=== PATIENT | male | born 1980 | race Caucasian/White ===

== ENCOUNTER 2016-06-27 12:54 | Emergency (ER) | payer OTHER ==
[~2016-06-27] VITALS: Ht 185.4 cm; Wt 88.5 kg
[2016-06-27 12:56] VITALS: BP 146/92; PULSE 72; RESP 15; TEMP 98.2; O2SAT 98
[2016-06-27] MEDS ORDERED: TRAZ300T2 PO (13:27)
--- NOTE | 2016-06-27 13:39 | PD ---
HPI Chief Complaint: Laceration/Skin Injury Time Seen by Provider: 13:38 Travel History International Travel<30 days: No Contact w/Intl Traveler<30days: No Traveled to known affect area: No History of Present Illness HPI 36-year-old male presents emergency Department with complaint of a laceration to his left thumb that occurred on Monday night from a serrated knife. He was seen earlier today at [facility] and was given his tetanus vaccination. He was told to come here for laceration repair. Reports swelling of the finger. Denies paresthesias, loss of sensation. Reports decreased range of motion secondary to swelling of the finger. Denies fever, chills, nausea, vomiting. No other medical complaints. No other modifying factors or associated signs and symptoms. PFSH Past Medical History Medical History: Denies Significant Hx Tetanus Vaccination: < 5 Years Past Surgical History Other Surgery: Yes (acl x 2) Social History Alcohol Use: Yes Tobacco Use: Yes Substance Use: No Allergies-Medications (Allergen,Severity, Reaction): Coded Allergies: No Known Allergies (Unverified , 06/27/16) Reported Meds & Prescriptions Reported Meds & Active Scripts Active Ibuprofen 800 Mg Tab 800 Mg PO Q6HR PRN Keflex (Cephalexin) 500 Mg Cap 500 Mg PO Q8H 7 Days Reported Trazodone (Trazodone HCl) 300 Mg Tab 300 Mg PO HS Review of Systems Except as stated in HPI: all other systems reviewed are Neg Physical Exam Narrative GENERAL: Well-nourished, well-developed male patient, in no acute distress SKIN: Warm and dry. Approximately one and half centimeter laceration to the medial aspect of the left thumb at the DIP joint; finger is with minimal edema and without erythema. With decreased range of motion at the DIP joint. Sensory intact. Good opposition. HEAD: Atraumatic. Normocephalic. EYES: Pupils equal and round. No scleral icterus. No injection or drainage. ENT: Mucosa pink and moist. Airway patent. NECK: Trachea midline. CARDIOVASCULAR: Regular rate. RESPIRATORY: No accessory muscle use. GASTROINTESTINAL: Flat. MUSCULOSKELETAL: No obvious deformities. No clubbing. No cyanosis. No edema. NEUROLOGICAL: Awake and alert. Oriented 3. No obvious cranial nerve deficits. Motor grossly within normal limits. Normal speech. PSYCHIATRIC: Appropriate mood and affect; insight and judgment normal. Data Data Last Documented VS Vital Signs Date Time Temp Pulse Resp B/P Pulse Ox O2 Delivery O2 Flow Rate FiO2 06/27/16 12:59 06/27/16 12:56 98.2 72 15 98 Orders Bupivacaine Pf 0.5% Inj (Marcaine Pf 0.5 (06/27/16 13:45) Lidocaine 1% Inj (50 Ml) (Xylocaine 1% I (06/27/16 13:45) MDM Medical Decision Making Medical Screen Exam Complete: Yes Emergency Medical Condition: Yes Medical Record Reviewed: Yes Differential Diagnosis Laceration, contusion, abrasion Narrative Course 36-year-old male with laceration to his left thumb. See my procedure note for laceration repair. Tetanus was updated prior to arrival at the [facility]. Keflex, ibuprofen prescribed for home. Patient verbalizes understanding and agreement with treatment plan. Patient is medically cleared and stable for discharge. Discussed reasons to return to the emergency department. Instructed patient to follow up with primary care provider. Patient agrees with treatment plan. The patients vital signs are stable and the patient is stable for outpatient follow-up and treatment. Patient discharged home, stable and in no acute distress. Procedures Procedure Narrative LACERATION LOCATION: Left thumb LENGTH: 1.5 cm NUMBER OF STITCHES/FIDE: 3 simple interpreted sutures REPAIR: The area of the laceration was prepped with Betadine and sterilely draped. The thumb was digitally blocked using 0.5% bupivacaine and 1% lidocaine. The wound was copiously irrigated and explored without evidence of foreign body , tendon injury or neurovascular injury. The wound was closed using 4-0 Ethilon. This was a single layer repair. A sterile dressing was applied. The patient was advised to keep the dressing clean and dry. Patient tolerated the procedure well. Diagnosis Primary Impression: Laceration of thumb, left Qualified Code: S61.012A - Laceration of thumb, left, initial encounter Referrals: Primary Care Physician Patient Instructions: Care For Your Stitches (ED), Finger Laceration (ED), General Instructions Departure Forms: Tests/Procedures, Work Release Enter return to work date: Jun 28, 2016 Additional Instructions: Keep area clean and dry Limit left thumb activity to decrease risk of sutures coming undone; finger splint for support Ibuprofen every 6 hours as directed and as needed for pain Ice pack to area as needed to decrease pain Return to the emergency department or follow-up with primary care provider in 7- 10 days for suture removal Follow up with primary care provider Return to the emergency department immediately with worsening of symptoms, particularly if reddened streaks up or down the affected extremity from the suture site, fever, numbness/tingling in the affected extremity, loss of sensation in the affected extremity, severe swelling of the affected Med/Other Pt SpecificInfo: Prescription(s) given Scripts Ibuprofen 800 Mg [id number] Mg PO Q6HR PRN (PAIN) #30 TAB Ref 0 Prov:Magda Gilbert 06/27/16 Cephalexin (Keflex)500 Mg [id number] Mg PO Q8H 7 Days Ref 0 Prov:Magda Gilbert 06/27/16 Disposition: 01 DISCHARGE HOME Condition: Stable Magda Gilbert Jun 27, 2016 13:38
[2016-06-27] MEDS ORDERED: IBUP800T23 PO (13:42)
[2016-06-27] MEDS ORDERED: CEPH-460 PO (13:42)
[2016-06-27] MEDS ORDERED: LIDOCAINE HCL 1% 50 ML VIAL INFIL ONE (13:45)
[2016-06-27] MEDS ORDERED: BUPIVACAINE HCL PF 0.5% 10 ML VIAL INFIL ONE (13:45)
== END 2016-06-27 14:51 | disposition home or self-care (01) ==
LOC: NEPK 12:54
DX: S61.012A Laceration without foreign body of left thumb without damage to nail, initial encounter (principal); Z72.0 Tobacco use
CPT/HCPCS: 12001

== ENCOUNTER 2017-04-11 12:21 | Observation (INO) | payer OTHER ==
[2017-04-11] MEDS ORDERED: NALOXONE HCL 0.4 MG/ML AMP IV PUSH ×2 (12:30→17:15)
[2017-04-11] MEDS ORDERED: SODIUM CHLORIDE 0.9% FLUSH 10 ML FLUSH IVF (12:30)
[2017-04-11] MEDS: SODIUM CHLOR 0.9% 1000 ML INJ 1,000 ML IV (12:39)
[2017-04-11] MEDS: NALOXONE HCL 2 MG/2 ML VIAL IV PUSH (12:40)
[2017-04-11 12:52] LABS: BASOPHIL % 0.3 % (0.0-2.0); EOSINOPHIL # 0.1 TH/MM3 (0-0.4); EOSINOPHIL % 1.6 % (0.0-4.0); HEMATOCRIT 43.7 % (39.0-51.0); HEMO FLAGS DIFF FINAL; HEMOGLOBIN 14.7 GM/DL (13.0-17.0); LYMPH % 31.7 % (9.0-44.0); LYMPHOCYTE # 2.1 TH/MM3 (1.0-4.8); MEAN CELL VOLUME 94.7 FL (80.0-100.0); MEAN CORPUSCULAR HEMOGLOBIN 31.8 PG (27.0-34.0); MEAN CORPUSCULAR HGB CONC 33.6 % (32.0-36.0); MEAN PLATELET VOLUME 9.2 FL (7.0-11.0); MONO % 6.5 % (0.0-8.0); MONOCYTE # 0.4 TH/MM3 (0-0.9); NEUT % 59.9 % (16.0-70.0); PLATELET COUNT 180 TH/MM3 (150-450); RED BLOOD COUNT 4.62 MIL/MM3 (4.50-5.90); WHITE BLOOD COUNT 6.6 TH/MM3 (4.0-11.0)
[2017-04-11 13:08] LABS: SALICYLATES LESS THAN 1.7 MG/DL (2.8-20.0)
[2017-04-11 13:09] LABS: ALBUMIN 4.1 GM/DL (3.4-5.0); ANION GAP 8 MEQ/L (5-15); AST (GOT) 42 U/L (15-37); BICARBONATE 26.7 MEQ/L (21.0-32.0); BLOOD UREA NITROGEN 9 MG/DL (7-18); CALCIUM 8.4 MG/DL (8.5-10.1); CHLORIDE 105 MEQ/L (98-107); CREATININE 0.83 MG/DL (0.60-1.30); GLOMERULAR FILTRATION RATE 105 ML/MIN (>89); GLUCOSE,RANDOM 91 MG/DL (74-106); POTASSIUM 3.8 MEQ/L (3.5-5.1); SODIUM (NA) 140 MEQ/L (136-145)
[2017-04-11 13:12] LABS: ALCOHOL 140 MG/DL (0-5)
[2017-04-11 13:14] LABS: ALKALINE PHOSPHATASE 62 U/L (45-117); ALT (GPT) 42 U/L (12-78); TOTAL BILIRUBIN ADULT 0.2 MG/DL (0.2-1.0)
[2017-04-11 13:15] LABS: ACETAMINOPHEN LESS THAN 2.0 MCG/ML (10.0-30.0)
[2017-04-11 13:40] LABS: BILIRUBIN, URINE NEG (NEG); BLOOD, URINE NEG (NEG); COMMENT (UR) CULT NOT INDICATED; CULTURE IF INDICATED CULT NOT INDICATED; GLUCOSE,URINE NEG (NEG); KETONE, URINE NEG (NEG); MUCUS URINE FEW /lpf (OCC); NITRITE,URINE NEG (NEG); PH, URINE 7.5 (5.0-8.5); URINE COLOR YELLOW (YELLW/STRAW); URINE LEUKOCYTE ESTERASE NEG (NEG)
[2017-04-11 13:51] LABS: AMPHETAMINE, URINE NEG (NEG); BARBITURATES, URINE NEG (NEG); BENZODIAZEPINE,URINE POS (NEG); CANNABINOIDS, URINE NEG (NEG); COCAINE, URINE NEG (NEG)
[2017-04-11] MEDS ORDERED: SENNOSIDES 8.6 MG TAB PO (17:15)
[2017-04-11] MEDS ORDERED: ACETAMINOPHEN 325 MG TAB PO (17:15)
[2017-04-11] MEDS ORDERED: ONDANSETRON HCL 4 MG/2 ML VIAL IVP (17:15)
[2017-04-11] MEDS ORDERED: MAGNESIUM HYDROXIDE SUSP 30 ML CUP PO (17:15)
[2017-04-11] MEDS ORDERED: BISACODYL 10 MG SUPP RECTAL (17:15)
[2017-04-11] MEDS ORDERED: LORazepam 2 MG TAB PO (17:15)
[2017-04-11] MEDS ORDERED: FLUMAZENIL 0.5 MG/5 ML VIAL IV PUSH (17:15)
[2017-04-11] MEDS ORDERED: SODIUM CHLORIDE 0.9% FLUSH 10 ML FLUSH IV FLUSH (17:15)
[2017-04-11] MEDS ORDERED: LORazepam 1 MG TAB PO (17:15)
[2017-04-11] MEDS ORDERED: LACTULOSE SYRUP 20 GM/30 ML CUP PO (17:15)
[2017-04-11] MEDS ORDERED: LORazepam 2 MG/ML VIAL IV PUSH ×4 (17:15)
[2017-04-11] MEDS: SODIUM CHLORIDE 0.9% FLUSH 10 ML FLUSH IV FLUSH (20:24)
[2017-04-11] MEDS: MULTIVITAMIN INJ 10 ML, FOLIC ACID INJ 1 MG in SODIUM CHLORID 0.9% 500 ML INJ 500 ML IV (20:24)
[2017-04-11] MEDS ORDERED: TEMAZEPAM 15 MG CAP PO (21:00)
[2017-04-12] MEDS: THIAMINE INJ 100 MG in SODIUM CHLORIDE 0.9% INJ 100 ML IV (00:47)
[2017-04-12] MEDS: ENOXAPARIN SODIUM 40 MG/0.4 ML SYRINGE SQ (00:47)
[2017-04-12 06:56] LABS: AUTOMATED NEUTROPHIL # 3.2 TH/MM3 (1.8-7.7); BASOPHIL % 0.5 % (0.0-2.0); EOSINOPHIL # 0.2 TH/MM3 (0-0.4); EOSINOPHIL % 3.2 % (0.0-4.0); HEMATOCRIT 40.7 % (39.0-51.0); HEMO FLAGS DIFF FINAL; HEMOGLOBIN 13.9 GM/DL (13.0-17.0); LYMPH % 38.6 % (9.0-44.0); LYMPHOCYTE # 2.5 TH/MM3 (1.0-4.8); MEAN CELL VOLUME 93.8 FL (80.0-100.0); MEAN CORPUSCULAR HEMOGLOBIN 32.1 PG (27.0-34.0); MEAN CORPUSCULAR HGB CONC 34.3 % (32.0-36.0); MEAN PLATELET VOLUME 9.2 FL (7.0-11.0); MONO % 8.4 % (0.0-8.0); MONOCYTE # 0.5 TH/MM3 (0-0.9); NEUT % 49.3 % (16.0-70.0); PLATELET COUNT 157 TH/MM3 (150-450); RED BLOOD COUNT 4.34 MIL/MM3 (4.50-5.90); RED CELL DISTRIBUTION WIDTH 12.7 % (11.6-17.2); WHITE BLOOD COUNT 6.5 TH/MM3 (4.0-11.0)
[2017-04-12 07:02] LABS: APTT (PATIENT) 28.9 SEC (24.3-30.1); PROTHROMBIN TIME - PATIENT 10.6 SEC (9.8-11.6)
[2017-04-12 07:21] LABS: ALBUMIN 3.7 GM/DL (3.4-5.0); ANION GAP 9 MEQ/L (5-15); AST (GOT) 39 U/L (15-37); BICARBONATE 28.5 MEQ/L (21.0-32.0); BLOOD UREA NITROGEN 12 MG/DL (7-18); CALCIUM 8.5 MG/DL (8.5-10.1); CHLORIDE 104 MEQ/L (98-107); CREATININE 0.82 MG/DL (0.60-1.30); GLOMERULAR FILTRATION RATE 106 ML/MIN (>89); GLUCOSE,RANDOM 73 MG/DL (74-106); POTASSIUM 3.6 MEQ/L (3.5-5.1); SODIUM (NA) 141 MEQ/L (136-145)
[2017-04-12 07:25] LABS: ACETAMINOPHEN LESS THAN 2.0 MCG/ML (10.0-30.0)
[2017-04-12 07:26] LABS: ALKALINE PHOSPHATASE 56 U/L (45-117); ALT (GPT) 37 U/L (12-78); TOTAL BILIRUBIN ADULT 0.7 MG/DL (0.2-1.0); TOTAL PROTEIN 7.1 GM/DL (6.4-8.2)
[2017-04-12] MEDS: DULoxetine HCl DR 60 MG CAP PO (10:19)
[2017-04-12] MEDS: SODIUM CHLORIDE 0.9% FLUSH 10 ML FLUSH IV FLUSH (10:19)
[2017-04-15] MEDS ORDERED: THIAMINE HCL 100 MG TAB PO (09:00)
== END 2017-04-12 18:10 ==
LOC: NEPC 12:21 → NEDA 14:15 → NEPGCP 18:08
DX: F43.21 Adjustment disorder with depressed mood (principal); F43.22 Adjustment disorder with anxiety; T50.901A Poisoning by unspecified drugs, medicaments and biological substances, accidental (unintentional), initial encounter; S62.328A Displaced fracture of shaft of other metacarpal bone, initial encounter for closed fracture; R45.851 Suicidal ideations; R40.0 Somnolence; R09.02 Hypoxemia; R55 Syncope and collapse; R94.31 Abnormal electrocardiogram [ECG] [EKG]; F10.20 Alcohol dependence, uncomplicated; F43.10 Post-traumatic stress disorder, unspecified; H91.90 Unspecified hearing loss, unspecified ear; F17.200 Nicotine dependence, unspecified, uncomplicated; F12.90 Cannabis use, unspecified, uncomplicated; M19.90 Unspecified osteoarthritis, unspecified site; Z87.820 Personal history of traumatic brain injury; Z85.820 Personal history of malignant melanoma of skin; W22.8XXA Striking against or struck by other objects, initial encounter
CPT/HCPCS: 71045; 73130; 80053; 80307; 81001; 82306; 82652; 84443; 85025; 85610; 85730; 92610-GN; 93005; 96361; 96365; 96366; 96372; 96375; 97165-GO; 99285-25

== ENCOUNTER 2017-04-12 14:24 | Inpatient (IN) | payer OTHER ==
[~2017-04-12 14:24] MED LIST: CYCL10TA PO; DULO1CAP3 PO; FLUO1TAB17; NALT50TA3 PO; NORC5TAB PO; TRAZ300T2 PO
[2017-04-12] MEDS ORDERED: ALUMINUM/MAGNESIUM/SIMETH 30 ML CUP PO PRN (20:00)
[2017-04-12] MEDS ORDERED: BENZTROPINE MESYLATE 1 MG TAB PO PRN (20:00)
[2017-04-12] MEDS ORDERED: LORazepam 2 MG/ML VIAL IM PRN ×4 (20:00)
[2017-04-12] MEDS ORDERED: LORazepam 1 MG TAB PO PRN (20:00)
[2017-04-12] MEDS ORDERED: FLUMAZENIL 0.5 MG/5 ML VIAL IV PUSH PRN (20:00)
[2017-04-12] MEDS ORDERED: hydrOXYzine HCL 50 MG TAB PO PRN (20:00)
[2017-04-12] MEDS ORDERED: LORazepam 2 MG TAB PO PRN (20:00)
[2017-04-12] MEDS ORDERED: MAGNESIUM HYDROXIDE SUSP 30 ML CUP PO PRN (20:00)
[2017-04-12] MEDS ORDERED: BENZTROPINE MESYLATE 2 MG/2 ML VIAL IM PRN (20:00)
[2017-04-12] MEDS ORDERED: ACETAMINOPHEN 325 MG TAB PO PRN (20:00)
[2017-04-13 05:30] VITALS: BP 128/68; PULSE 53; RESP 16; TEMP 97.9; O2SAT 96
[2017-04-13 08:36] LABS: ALBUMIN 3.7 GM/DL (3.4-5.0); ALT (GPT) 41 U/L (12-78); AST (GOT) 38 U/L (15-37); BICARBONATE 29.9 MEQ/L (21.0-32.0); BLOOD UREA NITROGEN 11 MG/DL (7-18); CALCIUM 8.6 MG/DL (8.5-10.1); CHLORIDE 103 MEQ/L (98-107); CHOLESTEROL 184 MG/DL (120-200); CREATININE 0.95 MG/DL (0.60-1.30); GLOMERULAR FILTRATION RATE 90 ML/MIN (>89); GLUCOSE,RANDOM 75 MG/DL (74-106); SODIUM (NA) 139 MEQ/L (136-145); TRIGLYCERIDES 131 MG/DL (42-150)
[2017-04-13 08:46] LABS: ALKALINE PHOSPHATASE 66 U/L (45-117); HDL CHOLESTEROL 59.2 MG/DL (40.0-60.0); LDL CHOLESTEROL 99 MG/DL (0-99); TOTAL BILIRUBIN ADULT 0.4 MG/DL (0.2-1.0); TOTAL PROTEIN 7.4 GM/DL (6.4-8.2)
[2017-04-13] MEDS: REMOVE OLD PATCH T-DERMAL SCH (09:00)
[2017-04-13] MEDS: THIAMINE HCL 100 MG TAB PO SCH (10:00)
[2017-04-13] MEDS: FOLIC ACID 1 MG TAB PO SCH (10:00)
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
[2017-04-13] MEDS: DULoxetine HCl DR 60 MG CAP PO SCH (16:31)
[2017-04-13 16:43] LABS: HEMOGLOBIN A1C 5.3 % (4.3-6.0)
[2017-04-13 18:47] VITALS: BP 137/79; PULSE 69; RESP 17; TEMP 97.9; O2SAT 97
[2017-04-13 18:49] VITALS: BP 137/79; PULSE 69; RESP 17; TEMP 97.9; O2SAT 97
[2017-04-13] MEDS ORDERED: traZODone HCL 100 MG TAB PO SCH (21:00)
[2017-04-13] MEDS: MELATONIN 5 MG TAB PO PRN (21:40)
[2017-04-14 06:13] VITALS: BP 130/66; PULSE 52; RESP 16; TEMP 97.2; O2SAT 96
[2017-04-14] MEDS: REMOVE OLD PATCH T-DERMAL SCH (09:00)
[2017-04-14] MEDS: THIAMINE HCL 100 MG TAB PO SCH (09:12)
[2017-04-14] MEDS: FOLIC ACID 1 MG TAB PO SCH (09:12)
[2017-04-14] MEDS: DULoxetine HCl DR 60 MG CAP PO SCH (09:12)
--- NOTE | 2017-04-14 11:43 | HHI.PYPN ---
Subjective Chief Complaint: depressed violent suicidal thoughts Remarks Patient seen in his room with nurse Cathy, chart review, patient compliant medications. Patient is markedly depressed with decreased range intensity is affect. He states he slept a few hours last night and then was up 07 night. There is still a hopelessness and helplessness with this. He does deny voices at this time is vague about suicidality at this time. Will adjust trazodone to 150 mg daily at bedtime, and add Remeron 15 mg at at bedtime. Did discuss various options for antidepressants and Remeron's effects side effects recent for use Review of Systems Except as stated in HPI: all other systems reviewed are Neg Mental Status Examination Appearance: Appropriate Consciousness: Alert Orientation: x4 Motor Activity: Normal gait Speech: Unremarkable Language: Adequate Fund of Knowledge: Adequate Attention and Concentration: Adequate Memory: Unremarkable Mood: Sad Affect: Other (decreased range and intensity) Thought Process & Associations: Intact Thought Content: Appropriate Hallucination Type: Auditory (vague PTSD related), Visual (vague PTSD related) Delusion Type: Bizarre (mild PTSD related) Suicidal Ideation: No Suicidal Plan: No Suicidal Intention: No Homicidal Ideation: No Homicidal Plan: No Homicidal Intention: No Insight: Fair Judgment: Impulsive Results Vitals/IOs Vital Signs Date Time Temp Pulse Resp B/P (MAP) Pulse Ox O2 Delivery O2 Flow Rate FiO2 04/14/17 06:13 97.2 52 16 130/66 (87) 96 Assessment & Plan Problem List: (1) PTSD (post-traumatic stress disorder) ICD Codes: F43.10 - Post-traumatic stress disorder, unspecified (2) TBI (traumatic brain injury) ICD Codes: S06.9X9A - Unspecified intracranial injury with loss of consciousness of unspecified duration, initial encounter Status: Chronic (3) Alcohol abuse with intoxication ICD Codes: F10.129 - Alcohol abuse with intoxication, unspecified Assessment & Plan Estimated LOS: days patient remains depressed suicidal ideation, though he denies voices. There is marked anhedonia with them also. See medication adjustments above Justification for Cont. Inpt. At this time patient decompensated placed on lower level of care Discharge Planning [facility], staying with his mother Request HC Surrog/Guard Advoc?: Garth White MD Apr 14, 2017 11:43
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
[2017-04-14 18:00] VITALS: BP 122/74; PULSE 63; RESP 16; TEMP 98.8; O2SAT 99
[2017-04-14] MEDS: MIRTAZAPINE 15 MG TAB PO SCH (21:13)
[2017-04-14] MEDS: traZODone HCL 50 MG TAB PO SCH (21:13)
[2017-04-14] MEDS: MELATONIN 5 MG TAB PO PRN (21:13)
[2017-04-15 06:07] VITALS: BP 121/64; PULSE 56; RESP 16; TEMP 97.6; O2SAT 96
[2017-04-15] MEDS: REMOVE OLD PATCH T-DERMAL SCH (07:50)
[2017-04-15] MEDS: THIAMINE HCL 100 MG TAB PO SCH (08:30)
[2017-04-15] MEDS: FOLIC ACID 1 MG TAB PO SCH (08:30)
[2017-04-15] MEDS: DULoxetine HCl DR 60 MG CAP PO SCH (08:30)
--- NOTE | 2017-04-15 10:46 | HHI.PYPN ---
Subjective Chief Complaint: depressed violent suicidal thoughts Remarks Pt seen and discussed with staff. Pt has been cooperative with care. He has been isolative to his room and prefers to not be around people. He reports poor sleep and nightmares, but reports that last night was improved. He is compliant with medications. No SI/HI Mental Status Examination Appearance: Appropriate Consciousness: Alert Orientation: x4 Motor Activity: Normal gait Speech: Unremarkable Language: Adequate Fund of Knowledge: Adequate Attention and Concentration: Adequate Memory: Unremarkable Mood: Sad Affect: Other (decreased range and intensity) Thought Process & Associations: Intact Thought Content: Appropriate Hallucination Type: Auditory (none), Visual (none) Delusion Type: Paranoid (mild) Suicidal Ideation: No Suicidal Plan: No Suicidal Intention: No Homicidal Ideation: No Homicidal Plan: No Homicidal Intention: No Insight: Fair Judgment: Impulsive Results Vitals/IOs Vital Signs Date Time Temp Pulse Resp B/P (MAP) Pulse Ox O2 Delivery O2 Flow Rate FiO2 04/15/17 06:07 97.6 56 16 121/64 (83) 96 Assessment & Plan Problem List: (1) PTSD (post-traumatic stress disorder) ICD Codes: F43.10 - Post-traumatic stress disorder, unspecified (2) TBI (traumatic brain injury) ICD Codes: S06.9X9A - Unspecified intracranial injury with loss of consciousness of unspecified duration, initial encounter Status: Chronic (3) Alcohol abuse with intoxication ICD Codes: F10.129 - Alcohol abuse with intoxication, unspecified Assessment & Plan Continue current tx plan. Estimated LOS: days Justification for Cont. Inpt. risk of decompensation Request HC Surrog/Guard Advoc?: Debbie Portillo MD Apr 15, 2017 10:46
[2017-04-15] MEDS: NICOTINE 21 MG/24 HR PATCH T-DERMAL PRN (15:38)
[2017-04-15 16:53] VITALS: BP 126/72; PULSE 62; RESP 16; TEMP 97.9; O2SAT 98
[2017-04-15] MEDS: MIRTAZAPINE 15 MG TAB PO SCH (21:52)
[2017-04-15] MEDS: traZODone HCL 50 MG TAB PO SCH (21:52)
[2017-04-15] MEDS: MELATONIN 5 MG TAB PO PRN (23:46)
[2017-04-16 06:09] VITALS: BP 126/77; PULSE 71; RESP 18; TEMP 98; O2SAT 99
[2017-04-16] MEDS: REMOVE OLD PATCH T-DERMAL SCH (07:42)
[2017-04-16] MEDS: FOLIC ACID 1 MG TAB PO SCH (08:10)
[2017-04-16] MEDS: NICOTINE 21 MG/24 HR PATCH T-DERMAL PRN (08:10)
[2017-04-16] MEDS: THIAMINE HCL 100 MG TAB PO SCH (08:10)
[2017-04-16] MEDS: DULoxetine HCl DR 60 MG CAP PO SCH (08:11)
--- NOTE | 2017-04-16 14:39 | HHI.PYPN ---
Subjective Chief Complaint: depressed violent suicidal thoughts Remarks Pt seen and discussed with staff. He has been isolative to his room but did go out for visitation with mother. No behavioral issues. He is compliant with care and medications. No SI/HI Mental Status Examination Appearance: Appropriate Consciousness: Alert Orientation: x4 Motor Activity: Normal gait Speech: Unremarkable Language: Adequate Fund of Knowledge: Adequate Attention and Concentration: Adequate Memory: Unremarkable Mood: Sad Affect: Other (decreased range and intensity) Thought Process & Associations: Intact Thought Content: Appropriate Hallucination Type: Auditory (none), Visual (none) Delusion Type: Paranoid (mild) Suicidal Ideation: No Suicidal Plan: No Suicidal Intention: No Homicidal Ideation: No Homicidal Plan: No Homicidal Intention: No Insight: Fair Judgment: Impulsive Results Labs Test 04/16/17 09:10 Carbamazepine (Tegretol) Level 3.7 MCG/ML Vitals/IOs Vital Signs Date Time Temp Pulse Resp B/P (MAP) Pulse Ox O2 Delivery O2 Flow Rate FiO2 04/16/17 06:09 98.0 71 18 126/77 (93) 99 Assessment & Plan Problem List: (1) PTSD (post-traumatic stress disorder) ICD Codes: F43.10 - Post-traumatic stress disorder, unspecified (2) TBI (traumatic brain injury) ICD Codes: S06.9X9A - Unspecified intracranial injury with loss of consciousness of unspecified duration, initial encounter Status: Chronic (3) Alcohol abuse with intoxication ICD Codes: F10.129 - Alcohol abuse with intoxication, unspecified Assessment & Plan Continue current tx plan. Estimated LOS: days Justification for Cont. Inpt. risk of decompensation Request HC Surrog/Guard Advoc?: Debbie Portillo MD Apr 16, 2017 14:39
[2017-04-16 18:00] VITALS: BP 118/67; PULSE 74; RESP 17; TEMP 97.4; O2SAT 98
[2017-04-16] MEDS: traZODone HCL 50 MG TAB PO SCH (21:54)
[2017-04-16] MEDS: MIRTAZAPINE 15 MG TAB PO SCH (21:54)
[2017-04-16] MEDS: MELATONIN 5 MG TAB PO PRN (23:30)
[2017-04-17 05:42] VITALS: BP 129/79; PULSE 57; RESP 18; TEMP 97.4; O2SAT 96
[2017-04-17] MEDS: THIAMINE HCL 100 MG TAB PO SCH (08:48)
[2017-04-17] MEDS: DULoxetine HCl DR 60 MG CAP PO SCH (08:48)
[2017-04-17] MEDS: FOLIC ACID 1 MG TAB PO SCH (08:48)
[2017-04-17] MEDS: REMOVE OLD PATCH T-DERMAL SCH (08:49)
[2017-04-17] MEDS: NICOTINE 21 MG/24 HR PATCH T-DERMAL PRN (09:14)
[2017-04-17] MEDS ORDERED: CARB100C PO (14:22)
[2017-04-17] MEDS ORDERED: FOLI1TAB6 PO (14:22)
[2017-04-17] MEDS ORDERED: DULO1CAP3 PO (14:22)
[2017-04-17] MEDS ORDERED: TRAZ1TAB14 PO (14:22)
[2017-04-17] MEDS ORDERED: MIRTA15 PO (14:22)
[2017-04-17] MEDS ORDERED: THIA100 PO (14:22)
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
== END 2017-04-17 17:33 | disposition home or self-care (01) | DRG 882 ==
LOC: H260 18:14
PROVIDERS: ADMIT Psychiatry & Neurology Psychiatry; ATTEND Psychiatry & Neurology Psychiatry
DX: F43.10 Post-traumatic stress disorder, unspecified (principal); Z91.14 Patient's other noncompliance with medication regimen; F10.129 Alcohol abuse with intoxication, unspecified; Z87.820 Personal history of traumatic brain injury
CPT/HCPCS: 80053; 80061; 80156; 83036; 84443

== ENCOUNTER 2017-08-12 01:56 | Emergency (ER) | payer OTHER ==
[~2017-08-12] VITALS: Ht 185.4 cm; Wt 93.0 kg
[~2017-08-12 01:56] MED LIST changes: +CARB100C PO; -CYCL10TA PO; -FLUO1TAB17; +FOLI1TAB6 PO; +MIRTA15 PO; -NALT50TA3 PO; -NORC5TAB PO; +THIA100 PO; +TRAZ1TAB14 PO; -TRAZ300T2 PO
[2017-08-12 02:04] VITALS: BP 144/90; PULSE 96; RESP 14; TEMP 98.1; O2SAT 96
[2017-08-12 02:41] LABS: AUTOMATED NEUTROPHIL # 7.6 TH/MM3 (1.8-7.7); BASOPHIL % 0.4 % (0.0-2.0); EOSINOPHIL # 0.4 TH/MM3 (0-0.4); EOSINOPHIL % 3.6 % (0.0-4.0); HEMATOCRIT 44.1 % (39.0-51.0); HEMOGLOBIN 14.9 GM/DL (13.0-17.0); LYMPHOCYTE # 1.6 TH/MM3 (1.0-4.8); MEAN CELL VOLUME 92.1 FL (80.0-100.0); MEAN CORPUSCULAR HEMOGLOBIN 31.1 PG (27.0-34.0); MEAN CORPUSCULAR HGB CONC 33.7 % (32.0-36.0); MEAN PLATELET VOLUME 9.7 FL (7.0-11.0); MONO % 8.5 % (0.0-8.0); MONOCYTE # 0.9 TH/MM3 (0-0.9); NEUT % 72.5 % (16.0-70.0); PLATELET COUNT 155 TH/MM3 (150-450); RED BLOOD COUNT 4.78 MIL/MM3 (4.50-5.90); RED CELL DISTRIBUTION WIDTH 13.4 % (11.6-17.2); WHITE BLOOD COUNT 10.5 TH/MM3 (4.0-11.0)
[2017-08-12 03:04] LABS: ALBUMIN 3.9 GM/DL (3.4-5.0); ALT (GPT) 25 U/L (12-78); AST (GOT) 23 U/L (15-37); BICARBONATE 25.2 MEQ/L (21.0-32.0); BLOOD UREA NITROGEN 10 MG/DL (7-18); CALCIUM 8.8 MG/DL (8.5-10.1); CHLORIDE 107 MEQ/L (98-107); CREATININE 1.06 MG/DL (0.60-1.30); GLOMERULAR FILTRATION RATE 79 ML/MIN (>89); GLUCOSE,RANDOM 109 MG/DL (74-106); SODIUM (NA) 143 MEQ/L (136-145)
[2017-08-12 03:06] LABS: ALKALINE PHOSPHATASE 93 U/L (45-117); CARBAMAZEPINE (TEGRETOL) LESS THAN 0.5 MCG/ML (4.0-12.0); TOTAL BILIRUBIN ADULT 0.2 MG/DL (0.2-1.0)
[2017-08-12 03:07] LABS: ACETAMINOPHEN LESS THAN 2.0 MCG/ML (10.0-30.0)
--- NOTE | 2017-08-12 03:34 | PD ---
HPI Chief Complaint: Psychiatric Symptoms Time Seen by Provider: 02:56 Travel History International Travel<30 days: No Contact w/Intl Traveler<30days: No Traveled to known affect area: No History of Present Illness HPI This is a 37-year-old male who presents under Garcia act initiated by the Police Department. According to his paperwork he sent text to his girlfriend saying that he wanted to hurt himself and that he would hurt anyone who tried to help him. Reportedly he told the police that if he was placed under Garcia act it would make him even more suicidal. The patient reports that he has had a " rough few days" and he believes that his girlfriend exaggerated things when speaking to the place. He does not want to discuss the issue anymore at this time as it is the middle of the night and is trying to sleep. He says that he would be willing to speak about it more when he is of a clear mind. In regards to medical issues he denies any medical issues. He denies any toxic ingestions or any other attempts at self-harm. He denies any illicit drug use. He endorses occasional alcohol use. No other complaints at this time. 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) Cardiovascular Problems: No High Cholesterol: No Chemotherapy: No Chest Pain: No Congestive Heart Failure: No COPD: No Cerebrovascular Accident: No Diabetes: No Endocrine: No GERD: No Genitourinary: No Headaches: Yes Hiatal Hernia: No Immune Disorder: No Insomnia: Yes Kidney Stones: No Musculoskeletal: No Neurologic: No Psychiatric: Yes (PTSD due to combat) Reproductive: No Respiratory: No Migraines: No Radiation Therapy: No Renal Failure: No Seizures: No Sickle Cell Disease: No Sleep Apnea: No Thyroid Disease: No Ulcer: No Past Surgical History Abdominal Surgery: Yes (appendectomy) AICD: No Arteriovenous Shunt: No Cardiac Surgery: No Ear Surgery: No Endocrine Surgery: No Eye Surgery: No Genitourinary Surgery: No Insulin Pump: No Joint Replacement: No Oral Surgery: No Pacemaker: No Thoracic Surgery: No Other Surgery: Yes (acl x 2, ANKLE SURGERIES, KNEE SURGERY IN SERVICE ) Social History Alcohol Use: Yes Tobacco Use: Yes Substance Use: Yes (cocaine, marijuana) Allergies-Medications (Allergen,Severity, Reaction): Coded Allergies: No Known Allergies (Unverified Allergy, Unknown, 04/11/17) Reported Meds & Prescriptions Reported Meds & Active Scripts Active Trazodone (Trazodone HCl) 150 Mg Tablet 150 Mg PO HS Mirtazapine 15 Mg Tab 15 Mg PO HS Carbamazepine 100 Mg Chew 100 Mg PO BID Duloxetine DR (Duloxetine HCl) 60 Mg Capdr 60 Mg PO DAILY Review of Systems Except as stated in HPI: all other systems reviewed are Neg Physical Exam Narrative GENERAL: Well-developed well-nourished male who is sleeping but arousable. SKIN: Warm and dry. HEAD: Atraumatic. Normocephalic. EYES: Pupils equal and round. No scleral icterus. No injection or drainage. ENT: No nasal bleeding or discharge. Mucous membranes pink and moist. NECK: Trachea midline. No JVD. CARDIOVASCULAR: Regular rate and rhythm. No murmur appreciated. RESPIRATORY: No accessory muscle use. Clear to auscultation. Breath sounds equal bilaterally. GASTROINTESTINAL: Abdomen soft, non-tender, nondistended. Hepatic and splenic margins not palpable. MUSCULOSKELETAL: No obvious deformities. No clubbing. No cyanosis. No edema. NEUROLOGICAL: Awake and alert. No obvious cranial nerve deficits. Motor grossly within normal limits. Normal speech. PSYCHIATRIC: Appropriate mood and affect; insight and judgment normal. Data Data Last Documented VS Vital Signs Date Time Temp Pulse Resp B/P (MAP) Pulse Ox O2 Delivery O2 Flow Rate FiO2 08/12/17 02:04 98.1 96 14 144/90 (108) 96 Orders Orders Complete Blood Count With Diff (08/12/17 02:25) Comprehensive Metabolic Panel (08/12/17 02:25) Psych Screen (08/12/17 02:25) Carbamazepine (Tegretol) (08/12/17 02:25) Drug Screen, Random Urine (08/12/17 02:25) Alcohol (Ethanol) (08/12/17 02:25) Salicylates (Aspirin) (08/12/17 02:25) Tylenol (Acetaminophen) (08/12/17 02:25) Diet Regular Basic (08/12/17 Breakfast) Labs Laboratory Tests Test 08/12/17 02:15 White Blood Count 10.5 TH/MM3 Red Blood Count 4.78 MIL/MM3 Hemoglobin 14.9 GM/DL Hematocrit 44.1 % Mean Corpuscular Volume 92.1 FL Mean Corpuscular Hemoglobin 31.1 PG Mean Corpuscular Hemoglobin Concent 33.7 % Red Cell Distribution Width 13.4 % Platelet Count 155 TH/MM3 Mean Platelet Volume 9.7 FL Neutrophils (%) (Auto) 72.5 % Lymphocytes (%) (Auto) 15.0 % Monocytes (%) (Auto) 8.5 % Eosinophils (%) (Auto) 3.6 % Basophils (%) (Auto) 0.4 % Neutrophils # (Auto) 7.6 TH/MM3 Lymphocytes # (Auto) 1.6 TH/MM3 Monocytes # (Auto) 0.9 TH/MM3 Eosinophils # (Auto) 0.4 TH/MM3 Basophils # (Auto) 0.0 TH/MM3 CBC Comment DIFF FINAL Differential Comment Blood Urea Nitrogen 10 MG/DL Creatinine 1.06 MG/DL Random Glucose 109 MG/DL Total Protein 8.0 GM/DL Albumin 3.9 GM/DL Calcium Level 8.8 MG/DL Alkaline Phosphatase 93 U/L Aspartate Amino Transf (AST/SGOT) 23 U/L Alanine Aminotransferase (ALT/SGPT) 25 U/L Total Bilirubin 0.2 MG/DL Sodium Level 143 MEQ/L Potassium Level 3.8 MEQ/L Chloride Level 107 MEQ/L Carbon Dioxide Level 25.2 MEQ/L Anion Gap 11 MEQ/L Estimat Glomerular Filtration Rate 79 ML/MIN Salicylates Level 2.1 MG/DL Urine Opiates Screen NEG Acetaminophen Level LESS THAN 2.0 MCG/ML Urine Barbiturates Screen NEG Carbamazepine (Tegretol) Level LESS THAN 0.5 MCG/ML Urine Amphetamines Screen NEG Urine Benzodiazepines Screen NEG Urine Cocaine Screen POS Urine Cannabinoids Screen POS Ethyl Alcohol Level 23 MG/DL [facility] Medical Decision Making Medical Screen Exam Complete: Yes Emergency Medical Condition: Yes Medical Record Reviewed: Yes Differential Diagnosis Major depressive disorder, acute psychosis, adjustment reaction, substance- induced mood disorder, bipolar disorder, schizophrenia Narrative Course Mental health screening discussed with the patient. Psychiatric screen ordered. Lab work has been reviewed. Notable for positive cocaine and cannabinoids screens and alcohol level 23. The patient is medically cleared. Diagnosis Primary Impression: Medical clearance for psychiatric admission Stone Malhotra August 12, 2017 03:34
[2017-08-12 06:34] VITALS: BP 129/63; PULSE 74; RESP 18; TEMP 99.2; O2SAT 94
--- NOTE | 2017-08-12 08:49 | PD ---
Physical Exam Date Seen by Provider: August 12, 2017 Narrative 37-year-old male presents emergency department for evaluation of suicidal ideations. He was evaluated by the initial provider and medically cleared to see psych. The psychiatric provider has lifted the Garcia act and patient will go home with his whom is in the waiting room. Patient says that he will go straight from the hospital to the [facility] clinic for an appointment on Monday. He denies any suicidal ideations at this time. Data Data Last Documented VS Vital Signs Date Time Temp Pulse Resp B/P (MAP) Pulse Ox O2 Delivery O2 Flow Rate FiO2 08/12/17 06:34 99.2 74 18 129/63 (85) 94 Room Air Orders Orders Complete Blood Count With Diff (08/12/17 02:25) Comprehensive Metabolic Panel (08/12/17 02:25) Psych Screen (08/12/17 02:25) Carbamazepine (Tegretol) (08/12/17 02:25) Drug Screen, Random Urine (08/12/17 02:25) Alcohol (Ethanol) (08/12/17 02:25) Salicylates (Aspirin) (08/12/17 02:25) Tylenol (Acetaminophen) (08/12/17 02:25) Diet Regular Basic (08/12/17 Breakfast) Ed Discharge Order (08/12/17 08:49) Labs Laboratory Tests Test 08/12/17 02:15 White Blood Count 10.5 TH/MM3 Red Blood Count 4.78 MIL/MM3 Hemoglobin 14.9 GM/DL Hematocrit 44.1 % Mean Corpuscular Volume 92.1 FL Mean Corpuscular Hemoglobin 31.1 PG Mean Corpuscular Hemoglobin Concent 33.7 % Red Cell Distribution Width 13.4 % Platelet Count 155 TH/MM3 Mean Platelet Volume 9.7 FL Neutrophils (%) (Auto) 72.5 % Lymphocytes (%) (Auto) 15.0 % Monocytes (%) (Auto) 8.5 % Eosinophils (%) (Auto) 3.6 % Basophils (%) (Auto) 0.4 % Neutrophils # (Auto) 7.6 TH/MM3 Lymphocytes # (Auto) 1.6 TH/MM3 Monocytes # (Auto) 0.9 TH/MM3 Eosinophils # (Auto) 0.4 TH/MM3 Basophils # (Auto) 0.0 TH/MM3 CBC Comment DIFF FINAL Differential Comment Blood Urea Nitrogen 10 MG/DL Creatinine 1.06 MG/DL Random Glucose 109 MG/DL Total Protein 8.0 GM/DL Albumin 3.9 GM/DL Calcium Level 8.8 MG/DL Alkaline Phosphatase 93 U/L Aspartate Amino Transf (AST/SGOT) 23 U/L Alanine Aminotransferase (ALT/SGPT) 25 U/L Total Bilirubin 0.2 MG/DL Sodium Level 143 MEQ/L Potassium Level 3.8 MEQ/L Chloride Level 107 MEQ/L Carbon Dioxide Level 25.2 MEQ/L Anion Gap 11 MEQ/L Estimat Glomerular Filtration Rate 79 ML/MIN Salicylates Level 2.1 MG/DL Urine Opiates Screen NEG Acetaminophen Level LESS THAN 2.0 MCG/ML Urine Barbiturates Screen NEG Carbamazepine (Tegretol) Level LESS THAN 0.5 MCG/ML Urine Amphetamines Screen NEG Urine Benzodiazepines Screen NEG Urine Cocaine Screen POS Urine Cannabinoids Screen POS Ethyl Alcohol Level 23 MG/DL MDM Supervised Visit with MEÑO: No Diagnosis Primary Impression: Adjustment disorder with disturbance of conduct Additional Impression: Medical clearance for psychiatric admission Patient Instructions: General Instructions Departure Forms: Tests/Procedures Disposition: DISCHARGE HOME JusticeTracy August 12, 2017 08:49
--- NOTE | 2017-08-12 12:07 | PD.PSY.CON ---
Provisional Diagnosis Admission Date [place]. Adjustment disorder with disturbance of conduct and emotions, PTSD, polysubstance dependence including cocaine, cannabis, alcohol [place] II. Unspecified personality disorder, clinically significant cluster B traits observed [place] III. TBI [place] IV. Multiple psychiatric hospitalizations, War [place] V. 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 According to his paperwork he sent text to his girlfriend saying that he wanted to hurt himself and that he would hurt anyone who tried to help him. Reportedly he told the police that if he was placed under Garcia act it would make him even more suicidal. The patient reports that he has had a " rough few days" and he believes that his girlfriend exaggerated things when speaking to the place. He does not want to discuss the issue anymore at this time as it is the middle of the night and is trying to sleep. He says that he would be willing to speak about it more when he is of a clear mind. In regards to medical issues he denies any medical issues. He denies any toxic ingestions or any other attempts at self-harm. On psychiatric evaluation today the patient is found sleeping, he is calm, cooperative, a little bit irritable. The patient reports that his girlfriend was definitely exaggerated her reaction yesterday. Patient denies ever saying that he wanted to kill himself or kill anybody. He reports that he is a war and he has been very compromising situations in the past "to save this country and to fight for this people" and he does not have any ideation to hurt anybody. Patient has admits he has a short temper and anger management issues. He has been engaged in psychotherapy and psychiatric outpatient care in the [place]. He reports that he is fully compliant with his medications. At this moment he denies anhedonia, denies hopelessness, denies helplessness, denies worthlessness, he denies suicidal and homicidal ideation. He denies visual and auditory hallucinations. Is fully oriented 3. No agitation or aggressive behavior observed at this moment. The patient reports occasional use of marijuana, cocaine and alcohol. He also admits that being intoxicated with alcohol yesterday "could not make me say things". Review of Systems Constitutional: DENIES: Diaphoretic episodes, Fatigue, Fever, Weight gain, Weight loss, Chills, Dizziness, Change in appetite, Night Sweats Endocrine: DENIES: Heat/cold intolerance, Polydipsia, Polyuria, Polyphagia Eyes: DENIES: Blurred vision, Diplopia, Eye inflammation, Eye pain, Vision loss , Photosensitivity, Double Vision Ears, nose, mouth, throat: DENIES: Tinnitus, Hearing loss, Vertigo, Nasal discharge, Oral lesions, Throat pain, Hoarseness, Ear Pain, Running Nose, Epistaxis, Sinus Pain, Toothache, Odynophagia Respiratory: DENIES: Apneas, Cough, Snoring, Wheezing, Hemoptysis, Sputum production, Shortness of breath Cardiovascular: DENIES: Chest pain, Palpitations, Syncope, Dyspnea on Exertion , PND, Lower Extremity Edema, Orthopnea, Claudication Gastrointestinal: DENIES: Abdominal pain, Black stools, Bloody stools, Constipation, Diarrhea, Nausea, Vomiting, Difficulty Swallowing, Anorexia Genitourinary: DENIES: Sexual dysfunction, Urinary frequency, Urinary incontinence, Urgency, Hematuria, Dysuria, Nocturia, Penile Discharge, Testicular Pain, Testicular Swelling Musculoskeletal: DENIES: Joint pain, Muscle aches, Stiffness, Joint Swelling, Back pain, Neck pain Integumentary: DENIES: Abnormal pigmentation, Nail changes, Pruritus, Rash Hematologic/lymphatic: DENIES: Bruising, Lymphadenopathy Immunologic/allergic: DENIES: Eczema, Urticaria Neurologic: DENIES: Abnormal gait, Headache, Localized weakness, Paresthesias, Seizures, Speech Problems, Tremor, Poor Balance Psychiatric: DENIES: Anxiety, Confusion, Mood changes, Depression, Hallucinations, Agitation, Suicidal Ideation, Homicidal Ideation, Delusions Past Family Social History Coded Allergies: No Known Allergies (Unverified Allergy, Unknown, 04/11/17) Active Scripts Trazodone (Trazodone) 150 Mg Tablet, 150 MG PO HS for health, #30 TAB 0 Refills Prov:Garth Hill MD 04/17/17 Mirtazapine (Mirtazapine) 15 Mg Tab, 15 MG PO HS for health, #30 TAB 0 Refills Prov:Garth Hill MD 04/17/17 Carbamazepine (Carbamazepine) 100 Mg Chew, 100 MG PO BID for health, #60 EA 0 Refills Prov:Garth Hill MD 04/17/[address] (Duloxetine DR) 60 Mg Capdr, 60 MG PO DAILY for health, #30 CAP 0 Refills Prov:Garth Hill MD 04/17/17 Discontinued Scripts Thiamine HCl (Gnp Vitamin B-1) 100 Mg Tab, 100 MG PO DAILY for health, #30 TAB 0 Refills Prov:Garth Hill MD 04/17/17 Folic Acid (Folic Acid) 1 Mg Tablet, 1 MG PO DAILY for health, #30 TAB 0 Refills Prov:Garth Hill MD 04/17/17 Family Psych History No family psychiatric history Social History Patient was born and raised in [place], he lives in [place] with girlfriend, employed in a restaurant, is a , service connected, his highest level of education is high school Patient's Strengths (min. 2) Outpatient care Physical Exam No tremors, no EPS, no psychomotor retardation or agitation Vital Signs Vital Signs Date Time Temp Pulse Resp B/P (MAP) Pulse Ox O2 Delivery O2 Flow Rate FiO2 08/12/17 09:07 08/12/17 06:34 99.2 74 18 94 Room Air Lab Results Test 08/12/17 02:15 White Blood Count 10.5 TH/MM3 Red Blood Count 4.78 MIL/MM3 Hemoglobin 14.9 GM/DL Hematocrit 44.1 % Mean Corpuscular Volume 92.1 FL Mean Corpuscular Hemoglobin 31.1 PG Mean Corpuscular Hemoglobin Concent 33.7 % Red Cell Distribution Width 13.4 % Platelet Count 155 TH/MM3 Mean Platelet Volume 9.7 FL Neutrophils (%) (Auto) 72.5 % Lymphocytes (%) (Auto) 15.0 % Monocytes (%) (Auto) 8.5 % Eosinophils (%) (Auto) 3.6 % Basophils (%) (Auto) 0.4 % Neutrophils # (Auto) 7.6 TH/MM3 Lymphocytes # (Auto) 1.6 TH/MM3 Monocytes # (Auto) 0.9 TH/MM3 Eosinophils # (Auto) 0.4 TH/MM3 Basophils # (Auto) 0.0 TH/MM3 CBC Comment DIFF FINAL Differential Comment Blood Urea Nitrogen 10 MG/DL Creatinine 1.06 MG/DL Random Glucose 109 MG/DL Total Protein 8.0 GM/DL Albumin 3.9 GM/DL Calcium Level 8.8 MG/DL Alkaline Phosphatase 93 U/L Aspartate Amino Transf (AST/SGOT) 23 U/L Alanine Aminotransferase (ALT/SGPT) 25 U/L Total Bilirubin 0.2 MG/DL Sodium Level 143 MEQ/L Potassium Level 3.8 MEQ/L Chloride Level 107 MEQ/L Carbon Dioxide Level 25.2 MEQ/L Anion Gap 11 MEQ/L Estimat Glomerular Filtration Rate 79 ML/MIN Salicylates Level 2.1 MG/DL Urine Opiates Screen NEG Acetaminophen Level LESS THAN 2.0 MCG/ML Urine Barbiturates Screen NEG Carbamazepine (Tegretol) Level LESS THAN 0.5 MCG/ML Urine Amphetamines Screen NEG Urine Benzodiazepines Screen NEG Urine Cocaine Screen POS Urine Cannabinoids Screen POS Ethyl Alcohol Level 23 MG/DL Mental Status Examination Appearance: Appropriate Consciousness: Alert Orientation: x4 Motor Activity: Normal gait Speech: Unremarkable Language: Adequate Fund of Knowledge: Adequate Attention and Concentration: Adequate Memory: Unremarkable Mood: Appropriate Affect: Appropriate Thought Process & Associations: Intact Thought Content: Appropriate Hallucination Type: None Delusion Type: None Suicidal Ideation: No Suicidal Plan: No Suicidal Intention: No Homicidal Ideation: No Homicidal Plan: No Homicidal Intention: No Insight: Adequate Judgment: Adequate Assessment & Plan Problem List: (1) Adjustment disorder with depressed mood ICD Codes: F43.21 - Adjustment disorder with depressed mood Assessment & Plan: Psychiatric evaluation today the patient is calm, cooperative, logical coherent and relevant. The patient does not present any objective or subjective symptomatology of acute depression, anxiety, chandler or psychosis. He denies suicidal and homicidal ideation. He denies visual and auditory hallucinations. The patient has an extensive psychiatric history of PTSD, depression, polysubstance dependence including alcohol, cannabis and cocaine, multiple psychiatric hospitalizations, [facility], he is in a psychotropic regimen described above. Patient also has very well identifiable and defiant clinically significant cluster B traits that could be related without personality pathology. His recent suicidal statement to his current seems to be secondary to manipulative behavior was probably exacerbated by acute intoxication with cocaine, alcohol and cannabis. At this moment he is in a low risk of danger to self and others. I will order his Cymbalta 60 and carbamazepine 100 now. But the patient will be discharged back home. [facility]. Assessment & Plan Estimated LOS: Matt Bowers MD August 12, 2017 12:07
== END 2017-08-12 10:00 | disposition home or self-care (01) ==
LOC: NEPJ 01:56
DX: F43.25 Adjustment disorder with mixed disturbance of emotions and conduct (principal); F12.90 Cannabis use, unspecified, uncomplicated; F14.90 Cocaine use, unspecified, uncomplicated; Z79.899 Other long term (current) drug therapy; Z72.0 Tobacco use
CPT/HCPCS: 80053; 80156; 80307; 85025; 99284